=== PATIENT | female | born 2000 | race Caucasian/White ===

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

== ENCOUNTER 2019-06-19 20:40 | Emergency (ER) | payer OTHER ==
[2019-06-19 20:47] VITALS: BP 108/60
== END 2019-06-19 22:34 | disposition left against medical advice (07) ==
LOC: ED 20:40
DX: Z53.21 Procedure and treatment not carried out due to patient leaving prior to being seen by health care provider (principal); R10.9 Unspecified abdominal pain
CPT/HCPCS: 99281